=== PATIENT | female | born 2000 | race Caucasian/White ===

== ENCOUNTER 2019-05-21 22:18 | Emergency (ER) | payer OTHER | END 2019-05-22 00:37 | disposition home or self-care (01) | LOC: FTE 05-22 00:37 | DX: G44.209 Tension-type headache, unspecified, not intractable (principal); H66.002 Acute suppurative otitis media without spontaneous rupture of ear drum, left ear; T16.1XXA Foreign body in right ear, initial encounter; X58.XXXA Exposure to other specified factors, initial encounter; Y92.9 Unspecified place or not applicable | CPT/HCPCS: 69200; 99282-25 ==